=== PATIENT | female | born 1960 | race Caucasian/White ===

== ENCOUNTER → 2017-05-18 | Day surgery (SDC) | payer OTHER ==
[~2017-05-18] MED LIST: LIDOCAINE 1% 300 MG/30 ML SDV ONE
== END | disposition home or self-care (01) ==
LOC: FIMAGING 07:19
PROVIDERS: ATTEND Surgery
PROC: 0HBU0ZZ Excision of Left Breast, Open Approach (ICD-10-PCS; principal; 2017-05-18)
DX: N60.92 Unspecified benign mammary dysplasia of left breast (principal)

== ENCOUNTER 2017-05-21 17:30 | Emergency (ER) | payer OTHER ==
[2017-05-21 17:37] VITALS: BP 149/74; PULSE 76; RESP 16; TEMP 99; O2SAT 97
--- NOTE | 2017-05-21 17:49 | EDPHY ---
H & P Time Seen by Provider: 05/21/17 17:39 HPI/ROS: CHIEF COMPLAINT: Left breast swelling HISTORY OF PRESENT ILLNESS: Patient had a breast biopsy on May [address] Franz. She is on Lovenox and warfarin because she has a pro coagulant disorder. She has been having a left breast hematoma and saw Dr. Franz in the office today with scheduled drainage tomorrow. She comes in tonight because the swelling is increase in the pain is worse. REVIEW OF SYSTEMS: Eye: No symptoms ENT: No symptoms Cardiac: Denies chest pain other than her left breast. Pulmonary: no cough or SOB Abdomen: No vomiting or diarrhea, last oral intake as below and social history. Musculoskeletal: no back pain Skin: Some bruising over the left breast at the site. Neuro: No weakness or numbness in the left arm. Constitutional: no fever : No symptoms. A comprehensive 10 point review of systems is otherwise negative aside from elements mentioned in the history of present illness. PAST MEDICAL HISTORY: Includes hypercholesterolemia and hypercoagulable disorder Social history: Last oral food at noon at a hamburger, last water was 1 hour ago at around 5:00 p.m.. General Appearance: Alert and conversant, cooperative. Eyes: No scleral icterus. ENT, Mouth: Normal mucous membranes. Respiratory: Normal respiratory effort, breath sounds equal, lungs are clear to auscultation. Cardiovascular: Regular rate and rhythm. Gastrointestinal: Abdomen is soft and non tender. Neurological: Alert and oriented x3. Skin: Some bruising over the left lateral breast. Musculoskeletal: Patient has tenderness and swelling and induration over the left breast. Tender to palpation. Psychiatric: Not agitated. Emergency Department course/MDM: Patient declined pain medication. Call is placed to her surgeon. Her last Lovenox was at 7:30 a.m.. She is on Coumadin and today it test at home for her INR which was 1.7 but did not take any additional Coumadin today. Discussed with Shiraz for Osei, 1752. 1852: Osei in ED now. Requests oral vitamin K 5mg, PT and PTT, patient be discharged will come back tomorrow morning for operative I and D. Smoking Status: Former smoker Constitutional: Initial Vital Signs Temperature (C) 37.2 C 05/21/17 17:31 Heart Rate 76 05/21/17 17:31 Respiratory Rate 16 05/21/17 17:31 Blood Pressure 149/74 H 05/21/17 17:31 O2 Sat (%) 97 05/21/17 17:31 O2 Delivery Mode Room Air Allergies/Adverse Reactions: No Known Allergies Allergy (Unverified 05/21/17 17:36) Home Medications: Medication Instructions Recorded Enoxaparin [Lovenox 60 MG (*)] 65 mg SQ 1000,2200 05/21/17 Hydrocodone/APAP 5/325 05/21/17 Simvastatin [Zocor] 40 mg PO 05/21/17 Warfarin Sodium [Coumadin 7.5MG 7.5 mg PO DAILY16 05/21/17 (*)] Departure - Departure Disposition: Home, Routine, Self-Care Clinical Impression: left breast hematoma Condition: Good Instructions: Hematoma (ED) Additional Instructions: Do not eat or drink anything after midnight tonight. Drainage tomorrow by Dr. Franz as arranged. Referrals: Jose Juan Franz MD [Medical Doctor] - As per Instructions
[2017-05-21] MEDS ORDERED: PHYTONADIONE 2.5 MG/2.5 ML ORAL UDL PO ONE (19:02)
[2017-05-21 19:27] LABS: INR 1.67 (0.83-1.16); PROTIME(PATIENT) 19.7 SEC (12.0-15.0)
[2017-05-21 19:28] LABS: APTT 45.7 SEC (23.0-38.0)
== END 2017-05-21 19:18 | disposition home or self-care (01) ==
DX: N64.89 Other specified disorders of breast (principal); Z79.01 Long term (current) use of anticoagulants; Z87.891 Personal history of nicotine dependence

== ENCOUNTER 2017-05-22 06:47 | Day surgery (SDC) | payer OTHER ==
[2017-05-22] MEDS ORDERED: BUPIVACAINE 0.5% 30 ML SDV ONE (07:07)
--- NOTE | 2017-05-22 07:43 | POSTOPPROG ---
Post Op Note Date of Operation: 05/22/17 Surgeon: Jose Juan Franz Anesthesiologist: Zach Anesthesia: Other (Specify) (MAC) Pre-op Diagnosis: Left breast hematoma Post-op Diagnosis: Same Procedure: Drainage left breast hematoma Inf/Abcess present in the surg proc area at time of surgery?: No EBL: Minimal Complications: no immediate Specimen(s): none
[2017-05-22] MEDS ORDERED: MIDAZOLAM 2 MG/2 ML VIAL IVP ONE (07:52)
--- NOTE | 2017-05-22 07:55 | PDANEPAE ---
ANE History of Present Illness i&d ANE Past Medical History - Cardiovascular History Hx Hypertension: No Hx Arrhythmias: No Hx Chest Pain: No Hx Coronary Artery / Peripheral Vascular Disease: No Hx CHF / Valvular Disease: No Hx Palpitations: No Cardiovascular History Comment: blood clot in past on coumadin - Pulmonary History Hx COPD: No Hx Asthma/Reactive Airway Disease: No Hx Recent Upper Respiratory Infection: No Hx Oxygen in Use at Home: No - Neurologic History Hx Cerebrovascular Accident: No Hx Seizures: No Hx Dementia: No - Endocrine History Hx Diabetes: No - Renal History Hx Renal Disorders: No - Liver History Hx Hepatic Disorders: No - Neurological & Psychiatric Hx Hx Neurological and Psychiatric Disorders: No ANE Review of Systems Review of Systems: - Exercise capacity METS (RN): 4 METS ANE Patient History - Allergies Allergies/Adverse Reactions: No Known Allergies Allergy (Unverified 05/22/17 07:06) - Home Medications Home Medications: Hydrocodone/APAP 5/325 05/21/17 [Last Taken Unknown] Simvastatin [Zocor] 40 mg PO 05/21/17 [Last Taken Unknown] Warfarin Sodium [Coumadin 7.5MG (*)] 7.5 mg PO DAILY16 05/21/17 [Last Taken Unknown] - NPO status NPO Since - Liquids (Date): 05/21/17 NPO Since - Liquids (Time): 21:00 - Anes Hx Anes Hx: post operative nausea and vomiting - Smoking Hx Smoking Status: Former smoker ANE Labs/Vital Signs - Vital Signs Blood Pressure: 104/69 Heart Rate: 67 Respiratory Rate: 18 O2 Sat (%): 95 Height: 165.1 cm Weight: 63.503 kg ANE Physical Exam - Airway Mallampati Score: Class 2 Mouth exam: normal dental/mouth exam - Pulmonary Pulmonary: no respiratory distress - Cardiovascular Cardiovascular: regular rate and rhythym - ASA Status ASA Status: II ANE Anesthesia Plan Anesthesia Plan: GA with mask, MAC
[2017-05-22] MEDS ORDERED: MIDAZOLAM 2 MG/2 ML VIAL ONE (07:57)
[2017-05-22] MEDS ORDERED: fentaNYL 100 MCG/2 ML INJ ONE (07:59)
[2017-05-22] MEDS ORDERED: PROPOFOL/EMULSION 500 MG/50 ML BOTTLE IV ONE (07:59)
[2017-05-22] MEDS ORDERED: LIDOCAINE 2% 5 ML SDV ONE (08:00)
[2017-05-22] MEDS ORDERED: LIDO/EPI 1% **for epidural** 30 ML SDV ONE (08:06)
[2017-05-22] MEDS ORDERED: LR 500 ML IV PRN (08:55)
[2017-05-22] MEDS ORDERED: ONDANSETRON 4 MG/2 ML VIAL IVP PRN (08:55)
[2017-05-22] MEDS ORDERED: NALOXONE HCL 0.4 MG/ML INJ IVP PRN (08:55)
[2017-05-22] MEDS ORDERED: ALBUTEROL 3 ML DEYVIAL IH PRN (08:55)
[2017-05-22] MEDS ORDERED: fentaNYL 100 MCG/2 ML INJ IVP PRN (08:55)
--- NOTE | 2017-05-22 08:55 | POSTANESTH ---
Post Anesthetic Evaluation Cardiovascular Status: Normal, Stable Respiratory Status: Normal, Stable Level of Consciousness/Mental Status: Can Participate in Eval Pain Control: Adequate, Prn Tx Ordered Nausea/Vomiting Control: Adequate, Prn Tx Ordered Complications Possibly Related to Anesthesia: None Noted
[2017-05-22 09:04] VITALS: BP 99/57; PULSE 70; RESP 16; TEMP 98.1; O2SAT 96
--- NOTE | 2017-05-22 09:17 | GOP ---
[f rep st] OPERATIVE REPORT DATE OF OPERATION: 05/22/2017 SURGEON: Jose Juan Franz MD ANESTHESIA: MAC. ANESTHESIOLOGIST: Dr. Serrano. PREOPERATIVE DIAGNOSIS: Left breast hematoma. POSTOPERATIVE DIAGNOSIS: Left breast hematoma. PROCEDURE PERFORMED: Evacuation of left breast hematoma. FINDINGS: See below. INDICATIONS: 56-year-old female, 4 days status post excisional left breast biopsy for multisite atypia. 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 Anticoagulants were appropriately held perioperatively. She presented yesterday evening with a delayed hematoma. Anticoagulants were held overnight. She is brought to the operating room this morning for evacuation. The risks and benefits were explained, including bleeding and infection, as well as recurrent hematoma. All questions were answered. She desires to proceed. DESCRIPTION OF PROCEDURE: After monitored anesthesia care was started, the left breast was infiltrated with 1% lidocaine and 0.5% Marcaine. The prior axillary incision was reopened. The left upper outer quadrant hematoma was evacuated. No specific bleeding points were identified. The muscle appeared pink and healthy beneath the hematoma once all had been cleared out. The cavity was irrigated until clear. The defect was closed in layers with absorbable sutures, followed by Dermabond. The patient was taken to recovery uneventfully. Copy requested to: Noemi Boyd /[id number]/[id number]
== END 2017-05-22 09:51 | disposition home or self-care (01) ==
LOC: FSGY 06:47
PROVIDERS: ATTEND Surgery
PROC: 0H9U0ZZ Drainage of Left Breast, Open Approach (ICD-10-PCS; principal; 2017-05-22 08:00)
DX: N64.89 Other specified disorders of breast (principal); Z87.891 Personal history of nicotine dependence
CPT/HCPCS: J2250; J2704; J3010